=== PATIENT | female | born 1960 | race Caucasian/White ===

== ENCOUNTER → 2016-08-28 | Outpatient (CLI) | payer OTHER ==
[~2016-08-28] MED LIST: ASPI325T80 PO; DIAZ10TA PO; DIAZ10TA4 PO; DIVA500T2 PO; GABA600T2 PO; HYDR-882 PO; LURA60TA PO; MECL25TA4 PO; OXYB5TAB7 PO; OXYC-229 PO; ROPI4TAB3 PO; TRAZ50TA18 PO; TRAZAMINE PO
== END | disposition home or self-care (01) ==
LOC: STAR 10:24
PROVIDERS: ATTEND Orthopaedic Surgery
DX: Z02.9 Encounter for administrative examinations, unspecified (principal)

== ENCOUNTER 2016-09-11 08:39 | Observation (INO) | payer OTHER ==
[~2016-09-11] VITALS: Ht 166.4 cm; Wt 72.2 kg
[2016-09-11 09:53] VITALS: BP 103/62
[2016-09-11] MEDS ORDERED: MIDAZOLAM 1 MG/ML, 2ML ONE (11:11)
[2016-09-11] MEDS ORDERED: FENTANYL PF 250 MCG/5ML ONE (11:11)
[2016-09-11] MEDS ORDERED: BUPIVACAINE/PF 0.5% ONE (11:25)
[2016-09-11] MEDS ORDERED: ROPIvacaine/PF 0.5%, 20 ML ONE (11:25)
[2016-09-11] MEDS ORDERED: BACITRACIN 50,000 UNIT ONE (11:31)
[2016-09-11] MEDS ORDERED: PROPOFOL 10 MG/ML, 20ML ONE (11:55)
[2016-09-11] MEDS ORDERED: ONDANSETRON 2MG/ML, 2ML ONE (11:55)
[2016-09-11] MEDS ORDERED: DEXAMETHASONE 4 MG/ML, 1ML ONE (11:55)
[2016-09-11] MEDS ORDERED: CLINDAMYCIN 150 MG/ML, 6ML ONE (12:12)
[2016-09-11] MEDS ORDERED: NEOSPORIN OINT, 15GM ONE ×2 (12:30)
[2016-09-11] MEDS ORDERED: BUPIVACAINE/PF-EPI 0.25% 1:200K ONE (12:51)
[2016-09-11] MEDS ORDERED: BUPIVACAINE/PF-EPI 0.25% 1:200K INFIL ONE (12:53)
[2016-09-11] MEDS ORDERED: HYDROcodone/APAP 7.5-325MG/15ML UDC PO PRN (13:00)
[2016-09-11] MEDS ORDERED: MEPERIDINE/PF 25MG/0.5ML IVPush PRN (13:00)
[2016-09-11] MEDS ORDERED: OXYcodone 5 MG/5 ML ORAL.SOL UDC PO PRN ×2 (13:00→15:00)
[2016-09-11] MEDS ORDERED: ONDANSETRON 2MG/ML, 2ML IVPush PRN (13:00)
[2016-09-11] MEDS ORDERED: MIDAZOLAM 1 MG/ML, 2ML IV PRN (13:00)
[2016-09-11] MEDS ORDERED: FENTANYL PF 100 MCG/2ML IV PRN (13:00)
[2016-09-11] MEDS ORDERED: ACETAMINOPHEN 325 MG TABLET PO PRN (13:00)
[2016-09-11] MEDS ORDERED: KETOROLAC 30 MG/1 ML IV PRN (13:00)
[2016-09-11] MEDS ORDERED: PROMETHAZINE 25 MG/ML, 1ML IV PRN (13:00)
[2016-09-11] MEDS ORDERED: HYDROmorphone 1 MG/ML, 1ML IV PRN (13:00)
[2016-09-11] MEDS ORDERED: ACETAMINOPHEN 650 MG/20.3 ML UDC ONE (13:42)
[2016-09-11] MEDS ORDERED: OXYcodone 5 MG/5 ML ORAL.SOL UDC ONE (13:42)
[2016-09-11] MEDS ORDERED: ONDANSETRON 2MG/ML, 2ML IV PRN (15:00)
[2016-09-11] MEDS: TRAZODONE 50MG TABLET PO SCH ×2 (15:00→23:00)
[2016-09-11] MEDS ORDERED: HYDROmorphone 1 MG/ML, 1ML IM PRN (15:00)
[2016-09-11] MEDS: KETOROLAC 30 MG/1 ML IV SCH (15:47)
[2016-09-11] MEDS: OXYcodone/APAP 5/325MG TABLET PO PRN ×2 (17:08→21:12)
[2016-09-11 18:34] VITALS: BP 105/68
[2016-09-11] MEDS: DIVALPROEX 250 MG TAB.ER.24H PO SCH (21:08)
[2016-09-11] MEDS: GABAPENTIN 300 MG CAPSULE PO SCH (21:08)
[2016-09-11 23:52] VITALS: BP 104/65
[2016-09-12] MEDS: OXYcodone/APAP 5/325MG TABLET PO PRN ×4 (01:47→21:17)
[2016-09-12] MEDS: KETOROLAC 30 MG/1 ML IV SCH ×2 (01:47→08:21)
[2016-09-12 04:38] VITALS: BP_SYST 106; BP_SYST 124; BP_DIAS 58; BP_DIAS 66
[2016-09-12] MEDS ORDERED: ENOXAPARIN 40 MG/0.4 ML SQ SCH (06:00)
[2016-09-12] MEDS: TRAZODONE 50MG TABLET PO SCH ×2 (07:00→15:00)
[2016-09-12 07:51] VITALS: BP 94/65
[2016-09-12] MEDS: GABAPENTIN 300 MG CAPSULE PO SCH ×2 (08:20→21:17)
[2016-09-12] MEDS: OXYBUTYNIN CHLORIDE 5 MG TABLET PO SCH (08:21)
[2016-09-12 14:00] VITALS: BP 96/60
[2016-09-12] MEDS ORDERED: ENOXAPARIN 30 MG/0.3 ML SQ SCH (16:00)
[2016-09-12 18:27] VITALS: BP 101/66
[2016-09-12] MEDS: DIVALPROEX 250 MG TAB.ER.24H PO SCH (21:17)
[2016-09-13] MEDS: TRAZODONE 50MG TABLET PO SCH ×3 (00:49→15:00)
[2016-09-13 00:51] VITALS: BP 97/64
[2016-09-13] MEDS: OXYcodone/APAP 5/325MG TABLET PO PRN ×3 (01:55→11:27)
[2016-09-13 06:43] VITALS: BP 111/72
[2016-09-13] MEDS: OXYBUTYNIN CHLORIDE 5 MG TABLET PO SCH (08:24)
[2016-09-13] MEDS: GABAPENTIN 300 MG CAPSULE PO SCH (08:24)
[2016-09-13 13:56] VITALS: BP 100/68
[2016-09-13] MEDS ORDERED: ASPI-650 PO (14:49)
[2016-09-13] MEDS ORDERED: OXYC-229 PO (14:49)
== END 2016-09-13 15:04 | disposition home or self-care (01) ==
LOC: OUT 08:39 → 4NOR 14:34 → OUT 23:06 → INTOOBSV 23:07 → 4NOR 23:07 → DCLOUNGE 09-13 14:45
PROVIDERS: ADMIT Orthopaedic Surgery; ATTEND Orthopaedic Surgery
DX: Z47.2 Encounter for removal of internal fixation device (principal)
CPT/HCPCS: 20680; 73590; 76000; 96372; 96374; 96375; 96376; 97116; 97161; 97530; G0378; J1100; J1650; J1885; J2250; J2405; J2704; J2795; J3010; J3490

== ENCOUNTER → 2017-04-03 | Outpatient (CLI) | payer OTHER ==
[~2017-04-03] MED LIST changes: +ASPI-650 PO; -OXYC-229 PO; +OXYC-307 PO
== END | disposition home or self-care (01) ==
LOC: CFH 10:26
PROVIDERS: ATTEND Nurse Practitioner Primary Care
DX: Z12.31 Encounter for screening mammogram for malignant neoplasm of breast (principal); N64.89 Other specified disorders of breast; M85.88 Other specified disorders of bone density and structure, other site; Z78.0 Asymptomatic menopausal state
CPT/HCPCS: 77080; G0202

== ENCOUNTER 2019-12-25 10:16 | Outpatient (CLI) | payer MEDICARE ==
[~2019-12-25 10:16] MED LIST changes: -GABA600T2 PO; +GABA600T7 PO; +HYDR-3653 PO; -HYDR-882 PO; +MECL-101 PO; -MECL25TA4 PO; +OXYB5TAB10 PO; -OXYB5TAB7 PO; -TRAZ50TA18 PO; +TRAZ50TA66 PO
== END 2019-12-25 23:59 | disposition home or self-care (01) ==
LOC: CFH 10:16
PROVIDERS: ATTEND Nurse Practitioner Primary Care
DX: Z02.9 Encounter for administrative examinations, unspecified (principal)

== ENCOUNTER 2020-02-23 15:33 | Observation (INO) | payer MEDICARE ==
[~2020-02-23] VITALS: Ht 165.1 cm; Wt 80.5 kg
--- NOTE | 2020-02-23 16:07 | NUR ---
FIRST CONTACT WITH PT. PT RESTING IN GURNEY, AWAKE/ALERT AND CONVERSANT. A&OX4. PT SLOW TO RESPOND BUT ANSWERS QUESTIONS APPROPRIATELY AND FOLLOWS ALL COMMANDS. FACE SYMMETRICAL, SPEECH CLEAR. EQUAL BUE STRENGTH AND SENSATION. BLE 4/5 STRENGTH, SENSATION INTACT. BLE W GOOD CAP REFILL. PATIENT REPORTS SYMPTOMS ONSET LAST NIGHT AT APPROXIMATELY 8PM WHEN SHE WALKED TO THE BATHROOM AND NOTED 'SHUFFLING' WHICH WORSENED THIS AM. PER FAMILY MEMBER IN ROOM, PT HAS A SHUFFLING GAIT WHICH IS NOT HER BASELINE. PATIENT ALSO REPORTS MIGRAINE W DIZZINESS/N/V LAST NIGHT WITH HX OF SAME. DENIES DELATORRE AT THIS TIME. DENIES CHANGES IN WITH SPEECH OR VISION, CP/SOB, FEVER, INCONTINENCE, OR RECENT TRAUMA. BP/SPO2/ECG MONITORING IN PLACE. ERP AT BEDSIDE FOR INITIAL ASSESSMENT.
[2020-02-23] MEDS ORDERED: SODIUM CHLORIDE FLUSH 10ML SYR IVF ONE (16:30)
[2020-02-23 16:56] LABS: BASOPHILS % (AUTO) 1 % (0-1); EOSINOPHILS % (AUTO) 1 % (1-7); LYMPHOCYTES % (AUTO) 23 % (22-44); MEAN CORPUSCULAR HGB CONC 32.4 g/dL (32.4-35.8); MEAN PLATELET VOLUME 9.7 fL (7.4-10.4); MONOCYTES % (AUTO) 14 % (2-9); NEUTROPHILS % (AUTO) 62 % (42-75); PLATELET COUNT 143 x10^3/uL (130-400); RED BLOOD COUNT 4.16 x10^6/uL (3.82-5.3); RED CELL DISTRIBUTION WIDTH 15.7 % (9.6-15.2)
[2020-02-23 16:57] LABS: MD NO
[2020-02-23 17:00] LABS: ALBUMIN 3.3 g/dL (3.4-5.0); ANION GAP 5 mmol/L (5-15); CALCIUM 9.4 mg/dL (8.5-10.1); CHLORIDE 111 mmol/L (98-107); CREATININE 0.82 mg/dL (0.55-1.02)
--- NOTE | 2020-02-23 17:09 | NUR ---
PT REQUESTING [place] [facility]". PT ADVISED TO HOLD MEDICATIONS UNTIL ED EVAL/TREATMENT COMPLETE. PT AGREEABLE AT THIS TIME.
--- NOTE | 2020-02-23 17:36 | NUR ---
PT TO RESTROOM VIA WHEELCHAIR FOR UA. PT ABLE TO STAND STEADILY AND TRANSFERS WITH A SHUFFLED GAIT. UA COLLECTED AND SENT
[2020-02-23 17:53] LABS: MICROSCOPIC AUTO
--- NOTE | 2020-02-23 17:56 | NUR ---
PT TO MRI. BROTHER TO BRING MEDICATIONS IN FOR COMPLETION OF MED REC
--- NOTE | 2020-02-23 18:27 | NUR ---
[facility] TELEPHONE HAND-OFF REPORT GIVEN TO DINAH WELLS. PT IN MRI AT THIS TIME.
[2020-02-23] MEDS ORDERED: FURO20TA3 PO (18:53)
[2020-02-23] MEDS ORDERED: DIME50TA57 PO (18:53)
[2020-02-23] MEDS ORDERED: ERGO500017 PO (18:53)
[2020-02-23] MEDS ORDERED: ZOLP5TAB6 PO (18:53)
[2020-02-23] MEDS ORDERED: PRAM1.5T PO (18:53)
[2020-02-23] MEDS ORDERED: OMEP10CA5 PO (18:53)
[2020-02-23] MEDS ORDERED: POTA20TA14 PO (18:53)
[2020-02-23 19:31] VITALS: BP 101/67
[2020-02-23] MEDS ORDERED: morphine SULFATE 10 MG/ML, 1ML IVPush PRN (21:00)
[2020-02-23] MEDS ORDERED: METHOCARBAMOL 500 MG TABLET PO PRN (21:00)
[2020-02-23] MEDS ORDERED: ACETAMINOPHEN 325 MG TABLET PO PRN (21:00)
[2020-02-23] MEDS ORDERED: ENALAPRILAT 1.25 MG/ML, 2ML IVPush PRN (21:00)
[2020-02-23] MEDS ORDERED: GUAIFENESIN/DM 200-20MG, 10ML UDC PO PRN (21:00)
[2020-02-23] MEDS ORDERED: DOCUSATE 100 MG CAPSULE PO PRN (21:00)
[2020-02-23] MEDS ORDERED: DIMENHYDRINATE 50 MG PO PRN (21:00)
[2020-02-23] MEDS: PRAMIPEXOLE 0.5MG TABLET PO SCH (21:00)
[2020-02-23] MEDS ORDERED: ONDANSETRON 2MG/ML, 2ML IVPush PRN (21:00)
[2020-02-23] MEDS ORDERED: PRAMIPEXOLE 0.25MG TABLET ONE (21:18)
[2020-02-23 21:22] VITALS: BP 101/67
[2020-02-23] MEDS: FAMOTIDINE 20 MG TABLET PO SCH (21:31)
[2020-02-23] MEDS: ZOLPIDEM 5MG TABLET PO PRN (21:31)
[2020-02-23] MEDS: ENOXAPARIN 40 MG/0.4 ML SQ SCH (21:32)
[2020-02-24 00:14] VITALS: BP 129/72
[2020-02-24] MEDS: PRAMIPEXOLE 0.5MG TABLET PO SCH ×4 (03:39→20:03)
[2020-02-24] MEDS: HYDROcodone/APAP 5/325 TABLET PO PRN ×2 (03:39→15:45)
[2020-02-24 05:21] LABS: BASOPHILS % (AUTO) 1 % (0-1); EOSINOPHILS % (AUTO) 1 % (1-7); LYMPHOCYTES % (AUTO) 29 % (22-44); MEAN CORPUSCULAR HEMOGLOBIN 31.3 pg (27.0-34.8); MEAN CORPUSCULAR HGB CONC 32.5 g/dL (32.4-35.8); MEAN PLATELET VOLUME 9.8 fL (7.4-10.4); MONOCYTES % (AUTO) 13 % (2-9); NEUTROPHILS % (AUTO) 57 % (42-75); PLATELET COUNT 137 x10^3/uL (130-400); RED BLOOD COUNT 3.98 x10^6/uL (3.82-5.3); RED CELL DISTRIBUTION WIDTH 15.7 % (9.6-15.2)
[2020-02-24 05:24] LABS: MD NO
[2020-02-24 05:27] LABS: ANION GAP 4 mmol/L (5-15); CALCIUM 9.3 mg/dL (8.5-10.1); CHLORIDE 109 mmol/L (98-107)
[2020-02-24 05:37] LABS: CREATININE 0.82 mg/dL (0.55-1.02)
[2020-02-24 07:01] VITALS: BP 129/71
[2020-02-24] MEDS: OMEPRAZOLE 20 MG CAPSULE.DR PO SCH (08:42)
[2020-02-24] MEDS: FUROSEMIDE 20 MG TABLET PO SCH (09:49)
[2020-02-24] MEDS: FAMOTIDINE 20 MG TABLET PO SCH ×2 (09:50→20:03)
[2020-02-24] MEDS: OXYBUTYNIN CHLORIDE 5 MG TABLET PO SCH (09:51)
[2020-02-24 12:21] VITALS: BP 110/65
[2020-02-24 18:31] VITALS: BP 95/61
[2020-02-24] MEDS: ENOXAPARIN 40 MG/0.4 ML SQ SCH (20:02)
[2020-02-24] MEDS: ZOLPIDEM 5MG TABLET PO PRN (20:03)
[2020-02-25 00:16] VITALS: BP 110/66
[2020-02-25] MEDS: HYDROcodone/APAP 5/325 TABLET PO PRN ×2 (01:06→10:37)
[2020-02-25] MEDS: PRAMIPEXOLE 0.5MG TABLET PO SCH ×3 (03:09→15:00)
[2020-02-25 07:33] VITALS: BP 93/63
[2020-02-25] MEDS: OMEPRAZOLE 20 MG CAPSULE.DR PO SCH (08:20)
[2020-02-25] MEDS: FUROSEMIDE 20 MG TABLET PO SCH (08:21)
[2020-02-25] MEDS: OXYBUTYNIN CHLORIDE 5 MG TABLET PO SCH (08:21)
[2020-02-25] MEDS: FAMOTIDINE 20 MG TABLET PO SCH (08:21)
[2020-02-25 14:06] VITALS: BP 113/63
== END 2020-02-25 16:49 | disposition home or self-care (01) ==
LOC: ED 17:59 → INTOOBSV 18:02 → EDIP 18:02 → 4WST 19:21
PROVIDERS: ADMIT Internal Medicine; ATTEND Family Medicine
DX: R26.0 Ataxic gait (principal); I95.9 Hypotension, unspecified; R06.02 Shortness of breath; R06.01 Orthopnea; R00.1 Bradycardia, unspecified; R55 Syncope and collapse; G25.81 Restless legs syndrome; G43.909 Migraine, unspecified, not intractable, without status migrainosus; G62.89 Other specified polyneuropathies; F31.9 Bipolar disorder, unspecified; R42 Dizziness and giddiness; K21.9 Gastro-esophageal reflux disease without esophagitis; R39.15 Urgency of urination; E87.8 Other disorders of electrolyte and fluid balance, not elsewhere classified; N17.9 Acute kidney failure, unspecified; E88.09 Other disorders of plasma-protein metabolism, not elsewhere classified; G47.00 Insomnia, unspecified; G47.33 Obstructive sleep apnea (adult) (pediatric); G47.419 Narcolepsy without cataplexy; F17.200 Nicotine dependence, unspecified, uncomplicated; Z79.899 Other long term (current) drug therapy; Z88.0 Allergy status to penicillin; Z79.82 Long term (current) use of aspirin; Z96.659 Presence of unspecified artificial knee joint; Z91.19 Patient's noncompliance with other medical treatment and regimen
CPT/HCPCS: 36415; 70450; 70551; 71046; 80048; 81001; 82040; 83880; 84443; 85025; 93005; 93306; 95819; 96372; 97162; 99285; G0378; J1650

== ENCOUNTER → 2020-05-09 | Outpatient (CLI) | payer MEDICARE, MEDICAID ==
[~2020-05-09] MED LIST changes: +DIME50TA57 PO; +ERGO500017 PO; +FURO20TA3 PO; +OMEP10CA5 PO; +POTA20TA14 PO; +PRAM1.5T PO; +ZOLP5TAB6 PO
== END | disposition home or self-care (01) ==
LOC: CFH 13:08
PROVIDERS: ATTEND Nurse Practitioner Primary Care
DX: R92.2 Inconclusive mammogram (principal)
CPT/HCPCS: 77062; 77066; G0279